=== PATIENT | female | born 1975 ===

== ENCOUNTER 2025-10-23 09:00 | Day surgery (SDC) | payer OTHER ==
[2025-10-18 12:13] LABS: BASO % 0.5 % (0.1-1.2); EOS # 0.05 (0.04-0.54); EOS % 0.6 % (0.7-7.0); LYMPH # 1.93 (1.18-3.74); LYMPH % 23.5 % (19.3-53.1); MEAN PLATELET VOLUME 8.70 fl (9.4-12.4); MONO # 0.59 (0.24-0.82); MONO % 7.2 % (4.7-12.5); NEUT # 5.59 (1.56-6.13); NEUT % 68.1 % (34.0-71.1); RED CELL DISTRIBUTION WIDTH 12.8 % (11.6-14.4)
[2025-10-18 12:16] LABS: URINE APPEARANCE Clear; URINE BILIRRUBIN Negative (NEGATIVE); URINE BLOOD Trace; URINE COLOR Yellow; URINE GLUCOSE Negative (NEGATIVE); URINE KETONE Negative (NEGATIVE); URINE LEUKOCYTE Negative; URINE NITRATE Negative; URINE PROTEIN Negative (NEGATIVE); URINE UROBILINOGEN 0.2 E.U./dl
[2025-10-18 12:20] LABS: URINE BACTERIA 50.3 uL (0.0-1933); URINE EPITHELIAL CELLS 5.0 uL (0.0-38.8); URINE RBC 24.2 uL (0.0-20.8); URINE WBC 2.4 uL (0.0-23.2)
[2025-10-18 12:30] VITALS: BP 106/70
[2025-10-18 12:41] LABS: INR 1.01
[2025-10-18 12:44] LABS: URINE CAST 0.00 uL (0.0-1.40)
[2025-10-18 13:07] LABS: ALT/SGPT 26.0 U/L (12-78); AST/SGOT 11.0 U/L (15-37); BILIRUBIN TOTAL 0.39 mg/dL (0.3-1.2); BUN CREA RATIO 26.0 (7.0-25.0); CREATININE SERUM 0.57 mg/dL (0.55-1.02); GFR 113.21; GLOBULINA 3.8 G/DL (2.4-3.5); GLUCOSE FASTING 84.0 mg/dL (65-100); OSMOLALITY SERUM 278.0 MOSM/KG (275-295)
[2025-10-23] MEDS ORDERED: POVIDONE-IODINE 118 ML BOTT TOP ONE (13:40)
[2025-10-23] MEDS ORDERED: MORPHINE SULFATE 4 MG/ML VIAL IV PRN (15:30)
[2025-10-23] MEDS ORDERED: KETOROLAC TROMETHAMINE 30 MG VIAL IV PRN (15:45)
[2025-10-23] MEDS ORDERED: ONDANSETRON HCL 2 MG/ML VIAL IV PRN (15:45)
== END 2025-10-23 12:40 | disposition home or self-care (01) ==
LOC: CIR.AMB 09:00
PROVIDERS: ATTEND Student in an Organized Health Care Education/Training Program
DX: N95.0 Postmenopausal bleeding (principal); Z91.013 Allergy to seafood